=== PATIENT | female | born 1980 | race Caucasian/White ===

== ENCOUNTER 2016-05-20 14:27 | Emergency (ER) | payer OTHER ==
[~2016-05-20 14:27] MED LIST: AZO STANDARD97.5 MG PO; BACTRIM DS TABL1 TA1 PO; BACTRIM DS TABL1 TA2; CIPRO PO; CLEOCIN HCL300 M1 PO; FLEXERIL10 MG PO; KEFLEX500 M1 PO; NAPROSYN500 MG PO; NO MEDICATIONS; POLYTRIM EYE DR10 ML OU; PYRIDIUM; PYRIDIUM PO; ULTRAM PO
[2016-05-20 14:38] LABS: INFLUENZA A NEG (NEG); INFLUENZA B NEG (NEG)
== END 2016-05-20 14:46 | disposition home or self-care (01) ==
LOC: SED 14:27
PROVIDERS: Nurse Practitioner
DX: B34.9 Viral infection, unspecified (principal); F17.210 Nicotine dependence, cigarettes, uncomplicated; Z98.51 Tubal ligation status; Z88.5 Allergy status to narcotic agent; Z88.1 Allergy status to other antibiotic agents; Z88.6 Allergy status to analgesic agent
CPT/HCPCS: 87651; 87804; 99282